=== PATIENT | male | born 1960 | race Caucasian/White ===

== ENCOUNTER 2025-05-08 05:43 | Emergency (ER) | payer OTHER ==
[~2025-05-08] VITALS: Ht 179.1 cm; Wt 154.2 kg
[2025-05-08 06:25] LABS: BASOPHILS % 0.5 % (0.0-2.0); EOSINOPHILS % 0.9 % (0.0-5.0); HEMATOCRIT. 42.8 % (42.0-52.0); HEMOGLOBIN. 14.3 g/dL (14.0-18.0); LYMPHOCYTES % 19.2 % (20.0-50.0); MEAN PLATELET VOLUME 8.1 fl (7.4-10.4); MONOCYTES % 7.3 % (2.0-8.0); NEUTROPHILS % 72.1 % (40.0-76.0); PLATELET 237 x1000/uL (130-400); RED BLOOD CELL COUNT 4.65 mill/uL (4.7-6.1); RED CELL DISTRIBUTION WIDTH 13.7 % (11.6-14.6)
[2025-05-08 06:41] LABS: CREATININE 1.1 mg/dL (0.6-1.3); TROPONIN I HIGH SENSITIVITY 13 ng/L (3.0-53); UREA NITROGEN BLOOD 14 mg/dL (9-23)
[2025-05-08] MEDS: SODIUM CHLORIDE 0.9% 1,000 ML IV ONE (07:09)
[2025-05-08 10:45] VITALS: BP 160/96; PULSE 84; RESP 17; TEMP 37.2; O2SAT 97
[2025-05-08] MEDS ORDERED: DOCUSATE SODIUM 100MG CAPSULE PO PRN (10:45)
[2025-05-08] MEDS ORDERED: ACETAMINOPHEN 325MG TABLET PO PRN ×2 (10:45)
[2025-05-08] MEDS ORDERED: CLONIDINE 0.1MG TABLET PO PRN (10:45)
[2025-05-08] MEDS ORDERED: MAGNESIUM/ALUMINUM HYDROXIDE/SIMETHICONE 30ML UDC PO PRN (10:45)
[2025-05-08] MEDS ORDERED: SODIUM CHLORIDE 0.9% 1,000 ML IV SCH (11:00)
[2025-05-08] MEDS ORDERED: ENOXAPARIN 30MG/0.3ML SYR SUBCUT SCH (11:00)
[2025-05-08 11:08] LABS: TRIGLYCERIDE 90.0 mg/dL (0-150)
[2025-05-08 11:09] LABS: LDL CHOLESTEROL 88.0 mg/dL (5-100)
== END 2025-05-08 10:50 | disposition admitted as inpatient to this hospital (09) ==
LOC: ER 05:43 → CANBEDREQ 08:31 → ER 10:50
DX: R00.2 Palpitations (principal); I10 Essential (primary) hypertension; Z20.822 Contact with and (suspected) exposure to COVID-19; Z79.899 Other long term (current) drug therapy
CPT/HCPCS: 99285; 96360; 71045; 87426; 80061; 80048; 83036; 84443; 85025; 84484; 36415; 93005; J7030